=== PATIENT | male | born 1995 | race Caucasian/White ===

== ENCOUNTER 2017-06-20 10:31 | Observation (INO) ==
[2017-06-20] MEDS ORDERED: Sodium Chloride 0.9% 1,000 ML PRIMARY IV ONE (10:45)
[2017-06-20] MEDS ORDERED: NORMAL SALINE 10 ML SYRINGE FLUSH IVP PRN ×2 (10:45→13:11)
[2017-06-20] MEDS ORDERED: ONDANSETRON 4 MG/2 ML VIAL IVP ONE ×2 (10:47→13:24)
[2017-06-20] MEDS: fentaNYL Inj 100 MCG/2 ML VIAL IVP ONE ×2 (11:00→12:20)
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
[2017-06-20 11:15] LABS: Hematocrit [HCT] 46.4 % (42.0-52.0); Hemoglobin [HGB] 16.4 g/dL (14.0-18.0); MEAN CORPUSCULAR HGB CONC 35.3 g/dL (33-37); MEAN PLATELET VOLUME 10.6 FL (7.4-12.2); RED BLOOD COUNT 5.66 10^6/uL (4.70-6.10)
[2017-06-20 11:25] LABS: BLOOD UREA NITROGEN 19 mg/dL (7-22); SERUM ALBUMIN 4.8 g/dL (3.5-4.8)
[2017-06-20 11:40] LABS: PLATELET MORPHOLOGY COMMENT NORMAL MORPHOLOGY (NORM); RBC MORPHOLOGY COMMENT NORMAL MORPHOLOGY (NORM); WBC MORPHOLOGY COMMENT SEE COMMENTS (NORM)
[2017-06-20 11:41] LABS: BAND NEUTROPHILS % 0 % (0-10); BASOPHILS % (MANUAL) 0 % (0-1); EOSINOPHILS % (MANUAL) 1 % (0-8); METAMYELOCYTES % 0 %; MONOCYTES % (MANUAL) 6 % (0-12); MYELOCYTES % 0 %; NEUTROPHILS % (MANUAL) 54 % (50-80); PROMYELOCYTES % 0 %
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
--- NOTE | 2017-06-20 11:57 | DI ---
AP CHEST X-RAY, 06/20/2017 10:47 AM : Clinical History: Injury to the chest. The patient fell from a roof. Previous Exam: None at this facility. There is no acute soft tissue or bony abnormality. Heart size is normal. Lungs are clear. Mediastinal structures are normal. There are no pulmonary nodules. Reading: Normal chest x-ray.
--- NOTE | 2017-06-20 12:00 | DI ---
CT CHEST SCAN WITH IV CONTRAST, 06/20/2017 10:47 AM : Clinical History: Injury to the chest. The patient fell from a roof. Previous Exam: None at this facility. Scans are performed from the base of the neck to the lower lung bases with IV contrast. 95 ml of Isov ue 300 was injected IV. Sagittal and coronal images using non MIPS and MIPS technique are generated. The base of the neck and thoracic inlet are normal. There are no abnormal axillary, supraclavicular, mediastinal, or hilar nodes. The heart is normal. There are no coronary artery calcifications. The th oracic aorta and the pulmonary arteries are also normal. There are no acute infiltrates or effusions. There is no evidence of a pneumothorax or pulmonary contusion. There is anterior wedging of T8 witho ut evidence of paravertebral soft tissue widening or of a fracture. This probably is an old compressi on fracture. The remaining vertebral bodies are intact. The sternum, ribs, clavicles, and scapulae ar e normal. READIN. Normal CT chest scan with IV contrast. 2. There is anterior wedging of T8 consistent with a compression fracture but this appears to be old .
--- NOTE | 2017-06-20 12:04 | DI ---
CT ABDOMEN SCAN WITH IV CONTRAST, 06/20/2017 10:47 AM : Clinical History: Trauma with injuries to the abdomen and pelvis. The patient fell off of a roof. Previous Exam: None at this facility. Scans are performed from the lower lung bases through the liver and kidneys with IV contrast. This is the same bolus of contrast used for the CT chest scan. The lung bases are clear. The liver is normal. The gallbladder is grossly normal. There is no abnorma lity of the spleen, pancreas, and adrenal glands. Both kidneys are normal in size, shape, position an d contour. There is no hydronephrosis or hydroureter. No renal or ureteral calculi are present. There are no abnormal retrocrural or periaortic nodes. No ascites is present. READING: Normal CT abdomen scan. CT PELVIS SCAN WITH IV CONTRAST, 06/20/2017 10:47 AM: Clinical History: See above. Previous Exam: None at this facility. Scans are performed from just superior to the umbilicus to the symphysis pubis with IV contrast. This is the same bolus of contrast used for the CT scans of the abdomen. Scans through the lower abdomen and pelvis show no masses or abnormal fluid collections. There is no adenopathy. The appendix is normal. The small bowel, terminal ileum, and ileocecal valve are normal. The colon is also normal. There are no hernias. There is a fracture through the right iliac wing but there may be some callus formation indicating this is an old fracture. The remainder of the bony pelv is, the sacrum, and both hips are normal. READIN. Scans of the pelvic structures are normal with the exception of a fracture through the right ford c wing. However, this appears chronic. 2. If the patient is unable to confirm that he has had a previous fracture of the right iliac wing, then plain films are recommended of the pelvis to further delineate that fracture.
[2017-06-20] MEDS ORDERED: fentaNYL Inj 100 MCG/2 ML VIAL IVP ONE (12:09)
--- NOTE | 2017-06-20 12:41 | DI ---
RIGHT HUMERUS, 06/20/2017 10:49 AM: Clinical History: Right arm pain. Injury. The patient fell from a roof. Previous Exam: None at this facility. AP and lateral views are submitted. There is no acute soft tissue, osseous, or joint abnormality. Reading: Normal right humerus exam.
[2017-06-20] MEDS ORDERED: MORPHINE SULFATE 2 MG/1 ML IV PRN (13:11)
[2017-06-20] MEDS: ONDANSETRON 4 MG/2 ML VIAL IVP PRN (13:26)
[2017-06-20] MEDS ORDERED: DIPH,PERTUSS,TET(ADACEL) VAC/PF 0.5 ML (Tdap) IM ONE ×2 (13:41→13:53)
[2017-06-20] MEDS: Sodium Chloride 0.9% 1,000 ML PRIMARY IV SCH ×2 (16:11→23:34)
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
[2017-06-20 19:15] LABS: BILIRUBIN,URINE NEGATIVE (NEG); CLARITY,URINE CLEAR (CLEAR); COLOR,URINE YELLOW; GLUCOSE, URINE (UA) NEGATIVE (NEG); NITRATE,URINE NEGATIVE (NEG); OCCULT BLOOD,URINE NEGATIVE (NEG); PROTEIN,URINE NEGATIVE (NEG); UROBILINOGEN,URINE 0.2 EU/dL (0.2)
[2017-06-20 19:16] LABS: URINE SAMPLE TYPE VOIDED SPECIMEN
[2017-06-20 19:23] LABS: AMPHETAMINE SCREEN NEGATIVE (NEG); CANNABINOID SCREEN,URINE NEGATIVE (NEG); COCAINE SCREEN NEGATIVE (NEG); METHADONE URINE SCREEN NEGATIVE (NEG); METHAMPHETAMINES SCREEN,URINE NEGATIVE (NEG); OPIATE SCREEN,URINE POSITIVE (NEG); URINE SAMPLE TYPE VOIDED SPECIMEN; URINE SPECIFIC GRAVITY - MAN 1.015
[2017-06-20] MEDS: HYDROcodone-APAP 5 MG -325 MG TABLET PO PRN (19:50)
[2017-06-20] MEDS: MORPHINE SULFATE 2 MG/1 ML IV PRN (19:50)
[2017-06-21] MEDS: MORPHINE SULFATE 2 MG/1 ML IV PRN ×2 (04:35→07:27)
[2017-06-21] MEDS: HYDROcodone-APAP 5 MG -325 MG TABLET PO PRN (04:35)
[2017-06-21] MEDS: ONDANSETRON 4 MG/2 ML VIAL IVP PRN (07:03)
--- NOTE | 2017-06-21 08:26 | PDOC(PROG) ---
Date and Time of Service: 06/21/2017 8:15 AM Interval History: Still having headaches. When he moves his head he has nausea. He vomited this morning after he ate breakfast. His ringing in his ears has resolved. His blurred vision has resolved. When he turns his head he feels his eyes lagged behind and that's when he feels woozy. He is also complaining of left posterior hip pain. It is intramuscular area. Pelvic CT scan reviewed and there is no injuries there. He has an old right iliac wing fracture but is tender on the left. He reports it doesn't hurt to walk. It hurts when he bends or moves. Consistent with muscle and soft tissue injury. Objective : Data - Labs CBC and BMP: 06/20/17 10:38 06/20/17 10:38 Labs - Last 24 Hours: Laboratory Results 06/20/17 Range/Units 19:05 Ur Collection Type Voided specimen Urine Color Yellow Urine Clarity Clear (CLEAR) Urine pH 7.0 (5.0-8.5) Ur Specific [place] 1.015 (1.005-1.030) U Specif Grav (Refrac) 1.015 Urine Protein Negative (NEG) mg/dl Urine Glucose (UA) Negative (NEG) mg/dL Urine Ketones Negative (NEG) Urine Occult Blood Negative (NEG) Urine Nitrate Negative (NEG) Urine Bilirubin Negative (NEG) Urine Urobilinogen 0.2 (0.2) EU/dL Ur Leukocyte Esterase Negative (NEG) Ur Culture Indicated? Culture not set Urine Opiates Screen Positive H (NEG) Ur Buprenorphine Negative (NEG) Ur Oxycodone Screen Negative (NEG) Urine Methadone Screen Negative (NEG) Ur Propoxyphene Screen Negative (NEG) Barbiturate Screen Negative (NEG) U Tricyclic Antidepress Negative (NEG) Phencyclidine Screen Negative (NEG) Amphetamines Screen Negative (NEG) U Methamphetamines Scrn Negative (NEG) Benzodiazepines Screen Negative (NEG) Cocaine Screen Negative (NEG) U Marijuana (THC) Screen Negative (NEG) - Vital Signs Vital Signs and I&O: Vital Signs - Last Taken Temperature 97.6 F 06/21/17 07:15 Pulse Rate 86 06/21/17 07:15 Respiratory Rate 16 06/21/17 07:15 Blood Pressure 121/64 06/21/17 07:15 Pulse Ox 93 06/21/17 07:15 Intake and Output (24hr x 4 totals) 06/19/17 06/20/17 06/21/17 06/22/17 05:59 05:59 05:59 05:59 Intake Total 2882 Output Total 525 600 Balance 2357 -600 Objective : Exam - General General Appearance: No Acute Distress, Cooperative - Head Head Exam: Normal Inspection, Normocephalic - Eye Eye Exam: Normal Appearance, PERRL, EOMI - Neck Neck Exam: Normal Inspection, Full ROM, Tenderness (Minimal posterior muscular tenderness.) - Respiratory Respiratory Exam: Clear to Auscultation - Bilaterally, Breathing Non Labored - Cardiovascular Cardiovascular Exam: RRR, No Murmur - GI/Abdominal GI/Abdominal Exam: Normal Bowel Sounds, Non Tender, Non Distended, Soft - Extremities Additional Extremities Exam Details: Abrasion left posterior shoulder. Abrasion right medial upper arm. - Neurological Neurological Exam: Alert, Oriented x 3, CN II-XII Intact, No Facial Droop, Moves All Extremities Equally - Psychiatric Psychiatric Exam: Normal Affect, Normal Mood - Integumentary Integumentary Exam: Normal Color, Warm, Dry, Intact Assessment and Plan - Patient Problems (1) Concussion Current Visit: Yes Status: Acute Priority: Medium Diagnosis Date: 06/20/17 Comment: Still with headaches, nausea, vomiting, and vertigo-like symptoms when he turns his head. This is all probably postconcussion. We will repeat a head CT to rule out other injury. If his head CT is normal he can probably be discharged home for follow-up with primary care. May need neurologic evaluation in the future if his symptoms don't clear the next day or 2.. Qualifiers: Encounter type: initial encounter Loss of consciousness presence/ duration: with LOC of 30 min or less Qualified Description: Concussion with loss of consciousness of 30 minutes or less, initial encounter Qualifier Code(s): (S06.0X1A) Concussion with loss of consciousness of 30 minutes or less , initial encounter (2) Fall Current Visit: Yes Status: Acute Priority: Medium Diagnosis Date: 06/20/17 Comment: No new injuries identified. Everything seems to be post closed head injury. Qualifiers: Encounter type: initial encounter Qualified Description: Fall, initial encounter Qualifier Code(s): (W19.XXXA) Unspecified fall, initial encounter
[2017-06-21] MEDS: Sodium Chloride 0.9% 1,000 ML PRIMARY IV SCH (08:58)
[2017-06-21] MEDS ORDERED: MECLIZINE 25 MG CHEWABLE TABLET PO SCH (09:00)
--- NOTE | 2017-06-21 09:23 | DI ---
CT HEAD SCAN WITHOUT IV CONTRAST, 06/21/2017 8:31 AM : Clinical History: Closed head injury with residual neurologic symptoms. Previous Exam: 06/20/2017. Scans are obtained from the foramen magnum to the vertex without IV contrast. The 4th, 3rd, and lateral ventricles are of normal size, shape, position, and contour for the patient 's age. There is no evidence of an acute intracranial hemorrhagic focus. The appearance of the brain parenchyma is unchanged from the prior exam. There are no extracerebral mantles or shift of the midli ne structures. Bone window evaluation is normal. There is almost complete opacification of the right maxillary sinus and the ethmoid sinuses. READING: Normal non contrast CT head scan. There has been no interval change.
[2017-06-21 13:31] VITALS: RESP 20; TEMP 98.6
--- NOTE | 2017-06-21 14:03 | DCSUMMARY ---
Discharge Summary Admit Date: 06/20/17 Discharge Date: 06/21/17 Admitting Diagnosis: closed head injury. Concussion. Discharge Diagnosis: Same. Primary Surgery and Date: None. Hospital Course: Patient fell off a roof and landed on his back and head. He had a postconcussive syndrome. He cleared partially by this morning but still had a headache with nausea and vomiting and vertigo symptoms. He was started on meclizine. Follow-up CT scan showed no acute injury. When seen later in the day he reports he felt much better. He feels ready to be discharged home for outpatient follow-up. Exam - Vitals Vital Signs: Vital Signs Temperature 98.6 F Temperature Source Temporal Artery Scan Pulse Rate [Pulse Oximeter] 68 Pulse Rate 67 Respiratory Rate 20 Blood Pressure [Left Arm] 117/51 Blood Pressure [Right Radial 133/88 Artery] Blood Pressure 150/97 Pulse Ox 95 Oxygen Delivery Method Room Air Height 6 ft Weight 104.508 kg - General General Appearance: POSITIVE: No Acute Distress, Cooperative - Head Head Exam: POSITIVE: Normal Inspection, Normocephalic - Eye Eye Exam: POSITIVE: Normal Appearance, PERRL, EOMI - Respiratory Respiratory Exam: POSITIVE: Clear to Auscultation - Bilaterally, Breathing Non Labored - Cardiovascular Cardiovascular Exam: POSITIVE: RRR, No Murmur - GI/Abdominal GI/Abdominal Exam: POSITIVE: Normal Bowel Sounds, Non Tender, Non Distended, Soft Data Perinent Studies: Noncontrast head CT 2. Procedures: None. Patient Problems - Patient Problem List (1) Concussion Current Visit: Yes Status: Acute Diagnosis Date: 06/20/17 Priority: Medium Comment: Continues to improve. Follow-up primary care provider next week. Do not return to work until seen by primary care provider. Qualifiers: Encounter type: initial encounter Loss of consciousness presence/ duration: with LOC of 30 min or less Qualified Description: Concussion with loss of consciousness of 30 minutes or less, initial encounter Qualifier Code(s): (S06.0X1A) Concussion with loss of consciousness of 30 minutes or less , initial encounter (2) Fall Current Visit: Yes Status: Acute Diagnosis Date: 06/20/17 Priority: Medium Comment: Stable. No injuries other than a concussion and some abrasions. Qualifiers: Encounter type: initial encounter Qualified Description: Fall, initial encounter Qualifier Code(s): (W19.XXXA) Unspecified fall, initial encounter
== END 2017-06-21 14:45 | disposition home or self-care (01) ==
LOC: ER 10:31 → MED/SURG 13:06
PROVIDERS: ADMIT Surgery; ATTEND Surgery